=== PATIENT | male | born 1960 | race Two or more races ===

== ENCOUNTER → 2018-09-07 | Outpatient (CLI) | payer OTHER ==
[~2018-09-07] MED LIST: CLARITIN5 MG/5 ML
== END | disposition home or self-care (01) ==
LOC: RAD 13:11
DX: K64.4 Residual hemorrhoidal skin tags (principal); K64.2 Third degree hemorrhoids; K59.01 Slow transit constipation; K60.0 Acute anal fissure

== ENCOUNTER 2018-09-11 13:00 | Outpatient (CLI) | payer OTHER | END 2018-09-11 13:02 | disposition home or self-care (01) | LOC: SONOGRAMA 13:00 → MAMO-SONO 14:15 | DX: E04.1 Nontoxic single thyroid nodule (principal) ==

== ENCOUNTER 2019-08-02 06:36 | Day surgery (SDC) | payer OTHER ==
[~2019-08-02 06:36] MED LIST changes: +LEVOTHYROXINE25 MCG PO
[2019-08-02] MEDS ORDERED: DIAZEPAM2 MG PO (11:46)
[2019-08-02] MEDS ORDERED: PERCOCET 5-3251 EACH PO (11:47)
[2019-08-02] MEDS ORDERED: KETO10TA2 PO (11:49)
[2019-08-02] MEDS ORDERED: RECTICARE30 GM TOP (11:49)
== END 2019-08-02 22:03 | disposition home or self-care (01) ==
LOC: CIR.AMB 06:36
DX: K62.4 Stenosis of anus and rectum (principal); K60.1 Chronic anal fissure